=== PATIENT | female | born 1995 | race Caucasian/White ===

== ENCOUNTER 2019-02-10 21:38 | Emergency (ER) | payer OTHER ==
[~2019-02-10] VITALS: Ht 170.2 cm; Wt 83.2 kg
[2019-02-10 22:50] LABS: BASOPHILS # (AUTO) 0.03 x10^3/uL (0-0.1); BASOPHILS % (AUTO) 0 % (0-1); EOSINOPHILS # (AUTO) 0.23 x10^3/uL (0-0.4); EOSINOPHILS % (AUTO) 2 % (1-7); LYMPHOCYTES # (AUTO) 3.69 x10^3/uL (1-3.4); LYMPHOCYTES % (AUTO) 37 % (22-44); MD NO; MEAN CORPUSCULAR HEMOGLOBIN 30.7 pg (27.0-34.8); MEAN CORPUSCULAR HGB CONC 33.3 g/dL (32.4-35.8); MEAN CORPUSCULAR VOLUME 92.2 fL (80-100); MEAN PLATELET VOLUME 8.5 fL (7.4-10.4); MONOCYTES # (AUTO) 0.63 x10^3/uL (0.2-0.8); MONOCYTES % (AUTO) 6 % (2-9); NEUTROPHILS # (AUTO) 5.28 x10^3/uL (1.8-6.8); NEUTROPHILS % (AUTO) 54 % (42-75); PLATELET COUNT 308 x10^3/uL (130-400); RED CELL DISTRIBUTION WIDTH 13.3 % (9.6-15.2)
[2019-02-10 22:56] LABS: ALBUMIN 3.8 g/dL (3.4-5.0); ANION GAP 8 mmol/L (5-15); CALCIUM 9.4 mg/dL (8.5-10.1); CHLORIDE 110 mmol/L (98-107); CREATININE 0.85 mg/dL (0.55-1.02)
[2019-02-10] MEDS ORDERED: hydrOXyzine 50MG TABLET ONE (23:28)
--- NOTE | 2019-02-10 23:39 | NUR ---
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
--- NOTE | 2019-02-10 23:52 | NUR ---
Pt agrees to med administration, given warm blanket per request, lights dimmed, family at bedside.
[2019-02-11 00:23] VITALS: BP 127/74
--- NOTE | 2019-02-11 00:28 | NUR ---
Pt reports "feeling so much better" pt agrees to discharge.
== END 2019-02-11 00:38 | disposition home or self-care (01) ==
LOC: ED 23:44
DX: F41.1 Generalized anxiety disorder (principal); R06.00 Dyspnea, unspecified
CPT/HCPCS: 36415; 71046; 80048; 82040; 85025; 93005; 99284; Q0177